=== PATIENT | male | born 1945 | race Caucasian/White ===

== ENCOUNTER → 2017-04-05 | Outpatient (CLI) | payer OTHER ==
--- NOTE | ~2017-04-05 | CR58 ---
[facility] A Service of [facility] & [facility] RADIOLOGY TEXT RESULTS PATIENT: EDMUND LANGE LOCATION: [facility] : 43 UNIT #: [id number] AGE: [address]: Merrill Jones MD SEX: M ORDER DR: [id number] [facility] [address] [place], [place] [address] [id number] O MR#: [id number] Acc #: [id number] NAME: EDMUND LANGE : 1945 SEX: M STUDY DATE/TIME: 04/05/2017 13:37 UNIT: [facility] ROOM: STUDY DESCRIPTION: CR Cervical Spine 2 or 3 Views Attending Physician: Merrill Jones M.D. Referring Physician: Merrill Jones M.D. Ordering Physician: Merrill Jones M.D. Primary Care Physician: Puneet Ling M.D. MEDICAL IMAGING REPORT This report is preliminary unless electronic signature is present EXAM Cervical spine, 3 views HISTORY New diagnosis prostate cancer 2 weeks ago. Staging exam. Followup hot spots on bone scan 04/05/2017. FINDINGS Three views of the cervical spine demonstrate moderate multilevel bony hypertrophic spurring in the vms-fz-nbzev cervical spine, corresponding to multilevel uptake on bone scan. Moderately severe degenerative disc space narrowing at C6-7. No cervical subluxation. No precervical soft tissue swelling. IMPRESSION No suspicious findings. Multilevel degenerative and hypertrophic changes correspond to areas of increased uptake on bone scan. Dictated by... Prakash Yeboah M.D. THIS IS AN ELECTRONICALLY VERIFIED REPORT Prakash Yeboah M.D. at 04/08/2017 11:00 PM DFL/pily TD: 04/08/2017 04:10 JOB #: [id number] MEDICAL IMAGING REPORT Page 1 of 1 COPY
--- NOTE | ~2017-04-05 | CR243 ---
[facility] A Service [facility] RADIOLOGY TEXT RESULTS PATIENT: EDMUND LANGE LOCATION: [facility] : 43 UNIT #: [id number] AGE: [address]: Merrill Jones MD SEX: M ORDER DR: [id number] [place], [place] [address] [id number] O MR#: [id number] Acc #: [id number] NAME: EDMUND LANGE : 1945 SEX: M STUDY DATE/TIME: 04/05/2017 13:36 UNIT: [facility] ROOM: STUDY DESCRIPTION: CR Thoracic Spine 3 Views Attending Physician: Merrill Jones M.D. Referring Physician: Merrill Jones M.D. Ordering Physician: Merrill Jones M.D. Primary Care Physician: Puneet Ling M.D. MEDICAL IMAGING REPORT This report is preliminary unless electronic signature is present EXAM Thoracic spine, 3 views HISTORY Prostate cancer, new diagnosis 2 weeks ago. Initial cancer staging. Followup hot spots on bone scan 04/05/2017. FINDINGS AP and lateral views of the thoracic spine demonstrate moderate hypertrophic spurring along the right lateral lower thoracic spine, corresponding to findings on bone scan. Additional mqnm-ak-jartpsce multilevel hypertrophic and degenerative changes mid and upper thoracic spine. No suspicious sclerotic lesion. No fracture. No subluxation. Minimal right lower thoracic curve. IMPRESSION 1. No suspicious findings. 2. Multilevel hypertrophic changes, greater along the right lateral lower thoracic spine, corresponding to findings on bone scan. No suspicious sclerotic lesions. Dictated by... Prakash Yeboah M.D. THIS IS AN ELECTRONICALLY VERIFIED REPORT Prkaash Yeboah M.D. at 04/08/2017 11:00 PM DFL/pily TD: 04/08/2017 04:07 JOB #: [id number] MEDICAL IMAGING REPORT [facility] A Service [facility] RADIOLOGY TEXT RESULTS PATIENT: EDMUND LANGE LOCATION: [facility] : 43 UNIT #: [id number] AGE: [address]: Merrill Jones MD SEX: M ORDER DR: Page 1 of 1 COPY
--- NOTE | ~2017-04-05 | CT3 ---
[facility] A Service of [facility] & [facility] RADIOLOGY TEXT RESULTS PATIENT: EDMUND LANGE LOCATION: [facility] : 43 UNIT #: [id number] AGE: [address]: Merrill Jones MD SEX: M ORDER DR: [id number] [facility] [address] [place], [place] [address] [id number] O MR#: [id number] Acc #: [id number] NAME: EDMUND LANGE : 1945 SEX: M STUDY DATE/TIME: 04/05/2017 9:44 UNIT: [facility] ROOM: STUDY DESCRIPTION: CT Abd and Pelv WWo Cont Attending Physician: Merrill Jones M.D. Referring Physician: Merrill Jones M.D. Ordering Physician: Merrill Jones M.D. Primary Care Physician: Puneet Ling M.D. MEDICAL IMAGING REPORT This report is preliminary unless electronic signature is present EXAM CT abdomen and pelvis with contrast INDICATIONS New diagnosis of prostate cancer. Observation for metastatic disease. TECHNIQUE CT abdomen and pelvis was performed following administration of IV contrast. Coronal and sagittal reformatted images were obtained. This CT exam was performed with one or more of the following radiation dose reduction techniques: automatic exposure control, adjustment of mA and/or kV according to patient size, and iterative reconstruction. FINDINGS There is a small nodule in the base of the right lower lobe measuring 7 mm which appears to have a central calcification. The liver is unremarkable. The gallbladder is unremarkable. The spleen is unremarkable. Small cyst in the right kidney. A small cyst in the left kidney. There are bilateral adrenal gland nodules. The nodule on the right measures 2.4 cm and the nodule in the left measures 1.9 cm. These are indeterminate and may be adenomas. The pancreas is unremarkable. There is no retroperitoneal lymphadenopathy. Pelvis: There is some areas of enhancement within the prostate gland which likely reflect the patient's malignancy. Correlate with prostate biopsies. Diverticulosis involving the sigmoid. No evidence for diverticulitis. No free fluid. No lymphadenopathy in the pelvis. The bone windows demonstrate degenerative changes of the lower lumbar spine. No sclerotic lesions are noted. IMPRESSION [facility] A Service of [facility] & [facility] RADIOLOGY TEXT RESULTS PATIENT: EDMUND LANGE LOCATION: [facility] : 43 UNIT #: [id number] AGE: [address]: Merrill Jones MD SEX: M ORDER DR: 1. There is no definite evidence of metastatic disease. 2. There are bilateral indeterminate adrenal gland nodules as described. These may simply be adenomas. These could be further evaluated with multiphase adrenal gland CT or MRI. 3. Indeterminate 7-mm nodule in the base of the right lower lobe with what appears to be a central calcification, may be a granuloma. This could be correlated with any old CTs available. Otherwise, a 3-6-month followup chest CT recommended to document stability Dictated by... Cuauhtemoc Zhang M.D. THIS IS AN ELECTRONICALLY VERIFIED REPORT Cuauhtemoc Zhang M.D. at 04/08/2017 4:58 PM HOMA/gregorio TD: 04/07/2017 14:32 JOB #: [id number] MEDICAL IMAGING REPORT Page 1 of 1 COPY
--- NOTE | ~2017-04-05 | NM8 ---
[facility] A Service of [facility] RADIOLOGY TEXT RESULTS PATIENT: EDMUND LANGE LOCATION: [facility] : 43 UNIT #: [id number] AGE: [address]: Merrill Jones MD SEX: M ORDER DR: [id number] [facility] [address] [place], [place] [address] [id number] O MR#: [id number] Acc #: [id number] NAME: EDMUND LANGE : 1945 SEX: M STUDY DATE/TIME: 04/05/2017 12:19 UNIT: [facility] ROOM: STUDY DESCRIPTION: VT Bone or Joint Whole Body Attending Physician: Merrill Jones M.D. Referring Physician: Merrill Jones M.D. Ordering Physician: Merrill Jones M.D. Primary Care Physician: Puneet Ling M.D. MEDICAL IMAGING REPORT This report is preliminary unless electronic signature is present EXAM Whole-body bone scan. HISTORY Order states - Total body bone scan with plain films of hot spots. History sheet states - PSA 19. No complaints of bone pain. No falls or fractures. Prostate cancer diagnosed [address] abdomen and pelvis, thoracic and cervical spine radiographs 04/05/2017. FINDINGS The patient received 27.5 mCi technetium-99m MDP intravenously and anterior and posterior whole-body scans are supplemented by spot images of the calvarium/cervical spine and thorax. There is mild increased uptake on the right in the lower thoracic spine correlating with multilevel hypertrophic spondylosis and endplate spurring. There is mild increased uptake in the lower lumbar region corresponding with L5-S1 spondylolisthesis and facet arthrosis. These findings are in correlation with the CT as well as the thoracic spine films of 04/05/2017. Areas of mid cervical spine uptake correspond with prominent facet arthrosis by radiography of 04/05/2017. There is no evidence of osseous metastatic disease. Minimal uptake in the knees is likely arthritic. Kidneys are visualized. IMPRESSION 1. No evidence of osseous metastatic disease. [facility] A Service of [facility] RADIOLOGY TEXT RESULTS PATIENT: EDMUND LANGE LOCATION: [facility] : 43 UNIT #: [id number] AGE: [address]: Merrill Jones MD SEX: M ORDER DR: Dictated by... Yola Redmond M.D. THIS IS AN ELECTRONICALLY VERIFIED REPORT Yola Redmond M.D. at 04/09/2017 8:23 AM C/[facility] TD: 04/09/2017 03:50 JOB #: [id number] MEDICAL IMAGING REPORT Page 1 of 1 COPY
[2017-04-05 11:26] LABS: POC - CREATININE 0.71 mg/dL (0.64-1.27); POC - GFR >60.0 mL/min (>60)
== END | disposition home or self-care (01) ==
LOC: CNUC 08:21
PROVIDERS: Urology
DX: C61 Malignant neoplasm of prostate (principal); M47.892 Other spondylosis, cervical region; E27.8 Other specified disorders of adrenal gland; K76.89 Other specified diseases of liver
CPT/HCPCS: 72040; 72072; 74178; 78306; 82565; A9503; Q9967